=== PATIENT | female | born 1930 | race Hispanic/Latino ===

== ENCOUNTER 2016-06-15 19:30 | Emergency (ER) | payer MEDICARE, OTHER ==
[2016-06-15] MEDS ORDERED: ZEMURON IV ONE ×2 (19:50→20:00)
[2016-06-15] MEDS ORDERED: ARTIFICIAL TEARS OPHTH OINT OU PRN (19:50)
[2016-06-15] MEDS ORDERED: VASELINE LIP THERAPY TP PRN (19:50)
[2016-06-15] MEDS ORDERED: KETALAR IV ONE (19:50)
[2016-06-15] MEDS ORDERED: NACL 0.9% 500 ML IV SCH (20:00)
[2016-06-15] MEDS ORDERED: fentaNYL DRIP Premix 100 ML IV SCH (20:00)
[2016-06-15] MEDS ORDERED: KETALAR ONE (20:00)
--- NOTE | 2016-06-15 20:01 | Emergency Department Report ---
ED General Adult HPI - General Chief complaint: Weakness Stated complaint: DIFFICULTY IN BREATHING Time Seen by Provider: 06/15/16 19:47 Source: EMS (verbal report received from EMS.ems notes not available at time of chart dictation), RN notes reviewed Limitations: Altered Mental Status, Physical Limitation - History of Present Illness Initial comments: This is an 86-year-old female, previously unknown to me. Has a past medical history hypertension, cardiomyopathy, pulmonary embolus, possible congestive heart failure. She is on Coumadin therapy. She is brought to the hospital by EMS for respiratory distress. Upon arrival, the patient was on positive pressure ventilation, and obtunded, not protecting her airway. EMS did not have paperwork which clarified her specified patient's advanced directives. Therefore, she was intubated immediately by myself with 1 attempt, using direct laryngoscopy, with a 3-0 Janie curved blade, with a 7.5 endotracheal tube. Prior to intubation, the patient was placed on a nasal cannula, going 15 L/m, and received bag valve mask ventilation. Unable to obtain O2 sat greater than 86%. However, patient required emergent intubation. After intubation, I performed external decompression of her thorax and abdominal wall by applying direct pressure, a lot of air was heard leaving the endotracheal tube, and O2 sat improved to 97%. Patient coded multiple times while in the emergency department. Standard ACLS interventions were followed. An initial EKG demonstrated possible subendocardial injury. A repeat EKG suggested a STEMI. A code STEMI was called overhead. Patient coded again after calling her code STEMI. Given tenuous hemodynamic status, a stat ultrasound guided right-sided femoral central line was placed by myself with no difficulty. I discussed her case with senior programmer, Dr. Alberto, who came to the ER to evaluate the patient. Patient was not given thrombolytics because we knew she was on Coumadin, and we were uncertain if she had any intracranial injury. Addition, the cardiology team specifically did not recommend thrombolytics. Patient coded multiple times while in the ER, and her pupils are fixed and dilated while she has been here. She is unlikely to make a meaningful neurologic recovery. Furthermore, in between patient's episode of coding, I was able to clarify goals of care and advanced directives with the patient's daughter, Mrs. Coco Burch. Patient's daughter opted for comfort care, hospice care, DO NOT RESUSCITATE, DO NOT INTUBATE. She states she specifically knew her mother would not want to be maintained artificially, especially if it was likely that she would not have appropriate/meaningful neurologic function. This was also discussed with senior programmer, and both myself, the senior programmer and the daughter had an extensive discussion about possible catheterization. Cardiology not feel the patient would benefit given multiple episodes of arrest, prolonged episodes of poor perfusion. Patient's daughter agree with this, and requested comfort care/hospice care. Currently, she is sedated on a fentanyl drip, and is DNR status. I have extensively discussed her poor prognosis with her daughter and the daughter's , and the patient is most likely to tonight. Nevertheless, the hospital physician, Dr. Lugo, graciously ACCEPTED the patient to his service. -: unknown Consistency: constant Improves with: none Worsens with: none Associated Symptoms: confusion - Related Data Home Medications Medication Instructions Recorded Confirmed Last Taken Doxazosin Mesylate [Cardura] 2 mg PO DAILY 02/07/13 05/15/16 11/24/15 Ipratropium/Albuter (Nf) 2 puff IH QID 05/02/13 05/15/16 11/24/15 [Combivent Inhaler] Levothyroxine [Synthroid] 88 mcg PO QAM 11/14/13 05/15/16 11/24/15 Albuterol Sulfate [Albuterol 0.63% 0.63 mg IH TID PRN 12/13/15 05/15/16 Unknown NEBS] Loratadine 10 mg PO DAILY 12/13/15 05/15/16 Unknown Warfarin [Coumadin] 5 mg PO DAILY@1700 12/13/15 05/15/16 Unknown Fluticasone/Vilanterol [Breo 1 each IH QDAY 05/15/16 05/15/16 Unknown Ellipta 100-25 Mcg INH] Lisinopril/Hydrochlorothiazide 1 tab PO QDAY 05/15/16 05/15/16 Unknown [Zestoretic 10-12.5 mg] Previous Rx's Medication Instructions Recorded Last Taken Type Famotidine [Pepcid] 20 mg PO BID #60 tablet 12/17/13 11/24/15 Rx Gabapentin [Neurontin] 100 mg PO BID PRN #60 capsule 12/17/13 11/24/15 Rx Metoprolol [Lopressor TAB] 50 mg PO BID #60 tablet 12/17/13 11/24/15 Rx QUEtiapine [SEROquel] 25 mg PO QHS #30 tablet 12/17/13 11/24/15 Rx risperiDONE [RisperDAL] 0.25 mg PO BID #60 tablet 12/17/13 11/24/15 Rx Allergies Allergy/AdvReac Type Severity Reaction Status Date / Time codeine AdvReac Unknown Verified 02/07/13 04:54 ED Review of Systems ROS: Stated complaint: DIFFICULTY IN BREATHING Other details as noted in HPI Comment: Unobtainable due to pts medical conditions ED Past Medical Hx - Past Medical History Hx Hypertension: Yes Hx Congestive Heart Failure: Yes Hx Pulmonary Embolism: Yes Hx Arthritis: Yes Hx Asthma: Yes Hx COPD: Yes (O2 dependent, previous intubations) Hx HIV: No Additional medical history: hypothyroid, pneumonia in February. Echocardiogram 11/15/2015: Ejection fraction of 50%. Diastolic function indeterminate - Surgical History Hx Cholecystectomy: Yes Additional Surgical History: goiter, hysterectomy, several hernia repairs, vaginal mass removed - Social History Smoking Status: Former Smoker - Medications Home Medications: Home Medications Medication Instructions Recorded Confirmed Last Taken Type Doxazosin Mesylate [Cardura] 2 mg PO DAILY 02/07/13 05/15/16 11/24/15 History Ipratropium/Albuter (Nf) 2 puff IH QID 05/02/13 05/15/16 11/24/15 History [Combivent Inhaler] Levothyroxine [Synthroid] 88 mcg PO QAM 11/14/13 05/15/16 11/24/15 History Famotidine [Pepcid] 20 mg PO BID #60 tablet 12/17/13 05/15/16 11/24/15 Rx Gabapentin [Neurontin] 100 mg PO BID PRN #60 capsule 12/17/13 05/15/16 11/24/15 Rx Metoprolol [Lopressor TAB] 50 mg PO BID #60 tablet 12/17/13 05/15/16 11/24/15 Rx QUEtiapine [SEROquel] 25 mg PO QHS #30 tablet 12/17/13 05/15/16 11/24/15 Rx risperiDONE [RisperDAL] 0.25 mg PO BID #60 tablet 12/17/13 05/15/16 11/24/15 Rx Albuterol Sulfate [Albuterol 0.63% 0.63 mg IH TID PRN 12/13/15 05/15/16 Unknown History NEBS] Loratadine 10 mg PO DAILY 12/13/15 05/15/16 Unknown History Warfarin [Coumadin] 5 mg PO DAILY@1700 12/13/15 05/15/16 Unknown History Fluticasone/Vilanterol [Breo 1 each IH QDAY 05/15/16 05/15/16 Unknown History Ellipta 100-25 Mcg INH] Lisinopril/Hydrochlorothiazide 1 tab PO QDAY 05/15/16 05/15/16 Unknown History [Zestoretic 10-12.5 mg] ED Physical Exam - General Limitations: Altered Mental Status, Physical Limitation General appearance: obtunded - Head Head exam: Present: atraumatic, normocephalic - Eye Eye exam: Present: other (pupils are minimally reactive to light pupils are minimally reactive to light.) - ENT ENT exam: Present: mucous membranes dry - Neck Neck exam: Present: normal inspection. Absent: tenderness, meningismus - Respiratory Respiratory exam: Present: normal lung sounds bilaterally, respiratory distress , wheezes, rales, rhonchi, prolonged expiratory - Cardiovascular Cardiovascular Exam: Present: tachycardia, irregular rhythm, normal heart sounds. Absent: bradycardia - GI/Abdominal GI/Abdominal exam: Absent: tenderness, guarding, rebound, pulsatile mass - Rectal Rectal exam: Present: normal inspection, normal rectal tone - External exam: Present: normal external exam Speculum exam: Present: normal speculum exam - Extremities Exam Extremities exam: Present: normal inspection, pedal edema - Back Exam Back exam: Present: normal inspection - Neurological Exam Neurological exam: Present: altered - Psychiatric Psychiatric exam: Present: flat affect - Skin Skin exam: Present: warm, dry, intact, normal color. Absent: rash ED Course Vital Signs 06/15/16 06/15/16 06/15/16 19:32 19:33 19:40 Temperature 98.5 F 98.8 F Pulse Rate 122 H 98 H Respiratory 18 9 L 18 Rate Blood Pressure 140/78 Blood Pressure 112/96 [Right] O2 Sat by Pulse 100 96 Oximetry 06/15/16 06/15/16 06/15/16 19:50 20:20 20:35 Temperature Pulse Rate 111 H 155 H 123 H Respiratory 18 20 Rate Blood Pressure 143/23 Blood Pressure 93/30 [Right] O2 Sat by Pulse 96 100 100 Oximetry 06/15/16 06/15/16 06/15/16 20:41 20:51 21:01 Temperature Pulse Rate 118 H 162 H 147 H Respiratory 18 22 Rate Blood Pressure 143/123 143/123 160/106 Blood Pressure [Right] O2 Sat by Pulse 99 94 99 Oximetry 06/15/16 06/15/16 06/15/16 21:39 21:41 21:51 Temperature Pulse Rate 114 H 114 H 122 H Respiratory 16 26 H 20 Rate Blood Pressure 94/62 94/62 94/62 Blood Pressure [Right] O2 Sat by Pulse 96 97 Oximetry 06/15/16 06/15/16 06/15/16 22:01 22:11 22:21 Temperature Pulse Rate 99 H 112 H 102 H Respiratory 20 21 20 Rate Blood Pressure 94/62 94/62 44/28 Blood Pressure [Right] O2 Sat by Pulse 97 97 97 Oximetry 06/15/16 06/15/16 06/15/16 22:31 22:41 22:51 Temperature Pulse Rate 87 41 L 38 L Respiratory 21 20 20 Rate Blood Pressure 44/28 44/28 Blood Pressure [Right] O2 Sat by Pulse 96 Oximetry 06/15/16 06/15/16 06/15/16 23:01 23:11 23:21 Temperature Pulse Rate 27 L 23 L Respiratory 20 20 Rate Blood Pressure Blood Pressure [Right] O2 Sat by Pulse Oximetry 06/15/16 06/15/16 23:31 23:41 Temperature Pulse Rate Respiratory 23 20 Rate Blood Pressure Blood Pressure [Right] O2 Sat by Pulse Oximetry - Reevaluation(s) Reevaluation #1: 06/16/16 00:28 Patient at 11:32 PM. Family at the bedside and informed. Hospital physician informed. - Central Line Placement Right Femoral Consent Obtained: emergent situation Time Out Performed: No (emergent) Patient Placed on Monitor/Pulse Ox: Yes (emergently placed) Prep: mask Central Line Prep: Povidone-Iodine 1% Ultrasound Used for Placement: Yes Central Line Lumen Inserted: triple Bloods Obtained for Lab: Yes Central Line Position: good blood return, all ports aspirated, flus, sutured in place with 2-0 Dressing Applied: Tegaderm Patient Tolerated Procedure: well Complications: none - Intubation Sedative: Ketamine Mg Given: 100 Paralytic: Rocuronium Mg Given: 100 Laryngoscope: Janie Size: 3 Assist Device Used: other (passive apneic oxygenation) Tube Secured Location: teeth Tube Placement Confirmation: visualized tube passing t Patient Tolerated Procedure: well Intubation Complications: hypoxia (hypoxia prior to intubation, did not desaturate further per intubation, and s/p ett placement, oxygensaturation improved) ED Medical Decision Making - Lab Data Result diagrams: 06/15/16 20:50 06/15/16 20:50 Vital Signs 06/15/16 06/15/16 06/15/16 19:32 20:35 20:41 Temperature 98.5 F Pulse Rate 122 H 123 H 118 H Respiratory 18 20 18 Rate Blood Pressure 140/78 143/123 O2 Sat by Pulse 100 100 99 Oximetry 06/15/16 06/15/16 06/15/16 20:51 21:01 21:39 Temperature Pulse Rate 162 H 147 H 114 H Respiratory 22 16 Rate Blood Pressure 143/123 160/106 94/62 O2 Sat by Pulse 94 99 Oximetry 06/15/16 21:41 Temperature Pulse Rate 114 H Respiratory 26 H Rate Blood Pressure 94/62 O2 Sat by Pulse 96 Oximetry Labs 06/15/16 06/15/16 06/15/16 20:21 20:50 20:50 WBC 12.2 H RBC 3.97 Hgb 12.5 Hct 37.0 MCV 93 MCH 32 MCHC 34 RDW 14.9 Plt Count 179 PT 22.9 H INR 2.02 H APTT 34.6 Sodium Potassium Chloride Carbon Dioxide Anion Gap BUN Creatinine Estimated GFR BUN/Creatinine Ratio Glucose POC Glucose 226 H Lactic Acid Calcium Total Bilirubin AST ALT Alkaline Phosphatase Ammonia Troponin T NT-Pro-B Natriuret Pep Total Protein Albumin Albumin/Globulin Ratio Blood Type 06/15/16 06/15/16 06/15/16 20:50 20:50 20:50 WBC RBC Hgb Hct MCV MCH MCHC RDW Plt Count PT INR APTT Sodium 142 Potassium 3.0 L Chloride 92.2 L Carbon Dioxide 35 H Anion Gap 18 BUN 19 H Creatinine 0.9 Estimated GFR 59 BUN/Creatinine Ratio 21.11 Glucose 362 H POC Glucose Lactic Acid 5.8 H* Calcium 8.3 L Total Bilirubin 0.5 AST 64 H ALT 35 Alkaline Phosphatase 51 Ammonia 47.0 Troponin T < 0.010 NT-Pro-B Natriuret Pep Total Protein 5.2 L Albumin 2.9 L Albumin/Globulin Ratio 1.3 Blood Type 06/15/16 06/15/16 20:50 20:50 WBC RBC Hgb Hct MCV MCH MCHC RDW Plt Count PT INR APTT Sodium Potassium Chloride Carbon Dioxide Anion Gap BUN Creatinine Estimated GFR BUN/Creatinine Ratio Glucose POC Glucose Lactic Acid Calcium Total Bilirubin AST ALT Alkaline Phosphatase Ammonia Troponin T NT-Pro-B Natriuret Pep 584.2 Total Protein Albumin Albumin/Globulin Ratio Blood Type A POSITIVE - EKG Data 06/15/16 22:02 EKG #1 demonstrates bradycardia, 68 bpm, ST depression diffusely, not consistent with STEMI. EKG #[address] elevation, consistent with STEMI. seen and discussed with the senior programmer, Dr. Alberto EKG #3 demonstrates sinus tachycardia, 120 bpm, not consistent with STEMI. EKG before demonstrates right bundle branch block, left axis, prolonged QTC, st abnormality. Not STEMI. - Radiology Data Radiology results: report reviewed, image reviewed interpreted by me: X-ray of the chest demonstrates appropriate placement of endotracheal tube. Hyper inflated lungs, COPD changes are noted. Noncontrast head CT negative for acute disease. Critical Care Time: Yes Critical care time in (mins) excluding proc time.: 120 Critical care attestation.: If time is entered above; I have spent that time in minutes in the direct care of this critically ill patient, excluding procedure time. Critical Care Time: critical care time includes multiple bedside evaluations. Interpretation of laboratory studies, radiology studies, and discussion with multiple consulting services, including hospital medicine, cardiology, and family to clarify goals of care. This does not include procedure time. ED Disposition Clinical Impression: Acute respiratory failure Qualifiers: Respiratory failure complication: unspecified whether with hypoxia or hypercapnia Qualified Code(s): J96.00 - Acute respiratory failure, unspecified whether with hypoxia or hypercapnia Disposition: Is pt being admited?: No Does the pt Need Aspirin: Yes Condition: Undetermined Referrals: PRIMARY CARE, [Primary Care Provider] - 3-5 Days
[2016-06-15] MEDS ORDERED: SODIUM BICARBONATE IV ONE ×2 (20:09→20:55)
--- NOTE | 2016-06-15 20:12 | XRay Report ---
FINAL REPORT EXAM: XR CHEST 1V AP HISTORY: ETT placement TECHNIQUE: upright single view chest PRIORS: None. FINDINGS: Cardiac and mediastinal contours are unremarkable. No focal pulmonary infiltrate is identified. No pleural fluid collection seen. Pulmonary vasculature is unremarkable. There has been placement of ET tube. Tip appears in satisfactory position approximately 6 centimeters above the eun. There is an NG tube present. Distal end overlies the region of the gastric fundus. IMPRESSION: ET and NG tubes appear in satisfactory position
[2016-06-15] MEDS ORDERED: XYLOCAINE 2% INFILTRATI ONE (20:44)
[2016-06-15] MEDS ORDERED: HEPARIN/NS 5000 UNIT/500ML(CATH LAB) 0 ML IR ONE (20:44)
[2016-06-15] MEDS ORDERED: NITROGLYCERIN SYRINGE 0 ML ONE (20:45)
[2016-06-15] MEDS ORDERED: NACL 0.9% 1000 ML 0 ML ONE (20:45)
[2016-06-15] MEDS ORDERED: ADRENALIN ONE (20:55)
[2016-06-15] MEDS ORDERED: CORDARONE IV ONE (20:55)
[2016-06-15] MEDS ORDERED: D50W (25GM) IV ONE (20:55)
[2016-06-15 21:03] LABS: Hemoglobin 12.5 gm/dl (10.1-14.3); Mean Corpuscular HGB Conc 34 % (30-34); Mean Corpuscular Hemoglobin 32 pg (28-32); Mean Corpuscular Volume 93 fl (79-97); Platelet Count 179 K/mm3 (140-440); Red Blood Count 3.97 M/mm3 (3.65-5.03); Red Cell Distribution Width 14.9 % (13.2-15.2); White Blood Count 12.2 K/mm3 (4.5-11.0)
[2016-06-15 21:18] LABS: INR 2.02 (0.87-1.13)
[2016-06-15 21:19] LABS: Partial Thromboplastin Time 34.6 Sec. (24.2-36.6)
[2016-06-15] MEDS ORDERED: fentaNYL DRIP Premix 2,000 MCG/100 ML BAG IV ONE (21:22)
[2016-06-15 21:23] LABS: Alanine Aminotransferase 35 units/L (7-56); Albumin 2.9 g/dL (3.9-5); Albumin/Globulin Ratio 1.3 %; Alkaline Phosphatase 51 units/L (35-129); BUN/Creatinine Ratio 21.11; Bilirubin,Total 0.5 mg/dL (0.1-1.2); Blood Urea Nitrogen 19 mg/dL (7-17); Calcium 8.3 mg/dL (8.4-10.2); Carbon Dioxide 35 mmol/L (22-30); Chloride 92.2 mmol/L (98-107); Glucose 362 mg/dL (65-100); Sodium 142 mmol/L (137-145); Total Protein 5.2 g/dL (6.3-8.2)
[2016-06-15 21:28] LABS: Anion Gap 18 mmol/L
--- NOTE | 2016-06-15 21:43 | Cat Scan Report ---
FINAL REPORT PROCEDURE: CT HEAD/BRAIN WO CON TECHNIQUE: Computerized tomography of the head was performed without contrast material. HISTORY: Altered Mental Status COMPARISON: Head CT dated November 24, 2015 FINDINGS: Indwelling nasogastric tube is seen. Fluid and mucosal thickening are seen in the paranasal sinuses. Mastoid air cells are clear. No calvarial fracture is seen. Moderate diffuse volume loss is seen in the brain. Cerebral ventricles are normal in size. Mild chronic small vessel ischemic changes are seen in the supratentorial white matter, similar to prior study. Idiopathic calcification is seen in the left basal ganglia. No acute intracranial hemorrhage or mass effect is seen. IMPRESSION: Mild chronic small vessel ischemic changes are seen without evidence of acute intracranial abnormality. There is indwelling nasogastric tube which may account for the paranasal sinus changes but consideration should be given to sinusitis.
[2016-06-15] MEDS ORDERED: fentaNYL DRIP Premix 2,000 MCG/100 ML BAG IV SCH (21:53)
[2016-06-15 22:03] LABS: Basophils % (Manual) 0 % (0.0-1.8); Blastocytes % (Manual) 0 %; RBC Morphology Normal
[2016-06-15 22:04] LABS: Diff Status Complete; Platelet Estimate Consistent w Auto
[2016-06-15] MEDS ORDERED: ASPIRIN PR ONE (22:07)
[2016-06-15] MEDS ORDERED: KCL 10MEQ/100ML 10 MEQ/100 ML BAG IV SCH (23:00)
[2016-06-15] MEDS ORDERED: MILK OF MAGNESIA PO PRN (23:12)
[2016-06-15] MEDS ORDERED: DILAUDID IV PRN (23:12)
[2016-06-15] MEDS ORDERED: ZOFRAN IV PRN (23:12)
[2016-06-15] MEDS ORDERED: TYLENOL PO PRN (23:12)
[2016-06-15] MEDS ORDERED: DULCOLAX PR PRN (23:12)
[2016-06-15] MEDS ORDERED: PULMICORT IH SCH (23:15)
--- NOTE | 2016-06-15 23:23 | Admit Criteria Form ---
Admission Criteria Documentation: RESPIRATORY FAILURE GRG Clinical Indications for Admission to Inpatient Care (Place 'X' for any and all applicable criteria): Hospital admission is needed for appropriate care of the patient because of acute respiratory failure or insufficiency as indicated by ANY ONE of the following(1)(2)(3)(4)(5)(6)(7)(8): [ ]I. Mechanical ventilation needed (acute invasive or noninvasive) [ ]II. Severe ventilation deficit as indicated by ANY ONE of the following (9) [ ]a) Respiratory acidosis (pH less than 7.32 and partial pressure of carbon dioxide greater than 40 mm Hg (5.3 kPa)) [ ]b) Partial pressure of carbon dioxide greater than 44 mm Hg (5.9 kPa ) (new) [ ]c) Airflow measurements less than 25% of predicted (eg, peak expiratory flow rate less than 100 L/minute) [ ]d) Forced vital capacity less than 15 mL/kg of ideal body weight, or 50% decrease in vital capacity from baseline [ ]III. Noncardiac pulmonary edema not resolving with rapid emergency treatment (8) [ ]IV. Severe respiratory distress as indicated by ANY ONE of the following: [ ]a) Severe tachypnea (respiratory rate greater than 30, greater than 45 for 6-month-old, greater than 60 for ) [ ]b) Severe hypoxemia (partial pressure of oxygen less than 50 mm Hg ( 6.7 kPa) on greater than 50% oxygen or partial pressure of oxygen to FIO2 ratio less than 200) [ ]c) Mental status deterioration from respiratory disease [X ]V. Airway obstruction or inadequate protection [A](10)(11) The original [employer] content created by [employer] has been revised. The portions of the content which have been revised are identified through the use of italic text or in bold, and [employer] has neither reviewed nor approved the modified material. All other unmodified content is copyright [employer]. Please see references footnoted in the original [employer] edition 2016 Admission Criteria Met: Yes
[2016-06-15] MEDS ORDERED: NOVOLOG SUB-Q ONE (23:34)
[2016-06-15] MEDS ORDERED: D5NS 1,000 ML IV SCH (23:45)
[2016-06-15 23:47] VITALS: BP 93/30
--- NOTE | 2016-06-15 23:57 | History and Physical Report ---
History of Present Illness Date of examination: 06/15/16 Date of admission: 06/15/16 Chief complaint: 06/15/16 Critical care statement: The high probability of a clinically significant sudden or life threatening deterioration of cardiopulmonary system required my full and direct attention,intervention and personal management .The aggregate critical care time was 40 minutes.This time is in addition to time spent performing reported procedures but includes the followin Data review and interpretation 2 Patient assesment andmonitoring of vital signs 3 Documentation 4 Medication orders and managemet CC :Difficulty breathing for one day History of present illness: This is an 86-year-old female, previously unknown to me. Has a past medical history hypertension, cardiomyopathy, pulmonary embolus, possible congestive heart failure. She is on Coumadin therapy. She is brought to the hospital by EMS for respiratory distress. Upon arrival, the patient was on positive pressure ventilation, and obtunded, not protecting her airway. EMS did not have paperwork which clarified her specified patient's advanced directives. Therefore, she was intubated immediately by myself with 1 attempt, using direct laryngoscopy, with a 3-0 Janie curved blade, with a 7.5 endotracheal tube. Prior to intubation, the patient was placed on a nasal cannula, going 15 L/m, and received bag valve mask ventilation. Unable to obtain O2 sat greater than 86%. However, patient required emergent intubation. After intubation, I performed external decompression of her thorax and abdominal wall by applying direct pressure, a lot of air was heard leaving the endotracheal tube, and O2 sat improved to 97%. Patient coded multiple times while in the emergency department. Standard ACLS interventions were followed. An initial EKG demonstrated possible subendocardial injury. A repeat EKG suggested a STEMI. A code STEMI was called overhead. Patient coded again after calling her code STEMI. Given tenuous hemodynamic status, a stat ultrasound guided right-sided femoral central line was placed by myself with no difficulty. I discussed her case with customer service security officer, Dr. Alberto, who came to the ER to evaluate the patient. Patient was not given thrombolytics because we knew she was on Coumadin, and we were uncertain if she had any intracranial injury. Addition, the cardiology team specifically did not recommend thrombolytics. Patient coded multiple times while in the ER, and her pupils are fixed and dilated while she has been here. She is unlikely to make a meaningful neurologic recovery. Furthermore, in between patient's episode of coding, I was able to clarify goals of care and advanced directives with the patient's daughter, Mrs. Coco Burch. Patient's daughter opted for comfort care, hospice care, DO NOT RESUSCITATE, DO NOT INTUBATE. She states she specifically knew her mother would not want to be maintained artificially, especially if it was likely that she would not have appropriate/meaningful neurologic function. This was also discussed with customer service security officer, the customer service security officer and the daughter had an extensive discussion about possible catheterization. Cardiology did not feel the patient would benefit given multiple episodes of arrest, prolonged episodes of poor perfusion. Patient's daughter agree with this, and requested comfort care/hospice care. Currently, she is sedated on a fentanyl drip, and is DNR status. I have extensively discussed her poor prognosis with her daughter and the daughter's , and the patient is most likely to tonight. Past History Past Medical History: CAD, COPD, heart failure, hypertension, hypothyroidism, pulmonary embolism Past Surgical History: Other Social history: lives with family Family history: hypertension Medications and Allergies Allergies Allergy/AdvReac Type Severity Reaction Status Date / Time codeine AdvReac Unknown Verified 02/07/13 04:54 Home Medications Medication Instructions Recorded Confirmed Last Taken Type Doxazosin Mesylate [Cardura] 2 mg PO DAILY 02/07/13 05/15/16 11/24/15 History Ipratropium/Albuter (Nf) 2 puff IH QID 05/02/13 05/15/16 11/24/15 History [Combivent Inhaler] Levothyroxine [Synthroid] 88 mcg PO QAM 11/14/13 05/15/16 11/24/15 History Famotidine [Pepcid] 20 mg PO BID #60 tablet 12/17/13 05/15/16 11/24/15 Rx Gabapentin [Neurontin] 100 mg PO BID PRN #60 capsule 12/17/13 05/15/16 11/24/15 Rx Metoprolol [Lopressor TAB] 50 mg PO BID #60 tablet 12/17/13 05/15/16 11/24/15 Rx QUEtiapine [SEROquel] 25 mg PO QHS #30 tablet 12/17/13 05/15/16 11/24/15 Rx risperiDONE [RisperDAL] 0.25 mg PO BID #60 tablet 12/17/13 05/15/16 11/24/15 Rx Albuterol Sulfate [Albuterol 0.63% 0.63 mg IH TID PRN 12/13/15 05/15/16 Unknown History NEBS] Loratadine 10 mg PO DAILY 12/13/15 05/15/16 Unknown History Warfarin [Coumadin] 5 mg PO DAILY@1700 12/13/15 05/15/16 Unknown History Fluticasone/Vilanterol [Breo 1 each IH QDAY 05/15/16 05/15/16 Unknown History Ellipta 100-25 Mcg INH] Lisinopril/Hydrochlorothiazide 1 tab PO QDAY 05/15/16 05/15/16 Unknown History [Zestoretic 10-12.5 mg] Active Meds: Active Medications Acetaminophen (Tylenol) 650 mg PO Q4H PRN PRN Reason: Pain MILD(1-3)/Fever >100.5/CAMACHO Albuterol/Ipratropium (Duoneb 0.5 Mg-3 Mg/3 Ml Soln) 1 ampul IH Q6HRT JORDYN Bisacodyl (Dulcolax) 10 mg IN QDAY PRN PRN Reason: Constipation unrelieved by MOM Budesonide (Pulmicort) 0.5 mg IH Q12HRT JORDYN Enoxaparin Sodium (Lovenox) 40 mg SUB-Q QDAY JORDYN Hydromorphone HCl (Dilaudid) 0.5 mg IV Q3H PRN PRN Reason: Pain , Severe (7-10) Hydrophilic Ointment (Vaseline Lip Therapy) 1 applic TP Q2HR PRN PRN Reason: Dry Lips Fentanyl Citrate (Fentanyl Drip Premix) 2,000 mcg in 100 mls @ 7.5 mls/hr IV TITR JORDYN; 2 MCG/KG/HR PRN Reason: Protocol Potassium Chloride (Kcl 10meq/100ml) 10 meq in 100 mls @ 100 mls/hr IV Q1H JORDYN Stop: 06/16/16 02:59 Dextrose/Sodium Chloride (D5ns) mls @ 100 mls/hr IV DIRECT JORDYN Piperacillin Sod/Tazobactam Sod (Zosyn/Ns 4.5gm/100ml) mls @ 200 mls/hr IV Q8HR JORDYN PRN Reason: Protocol Insulin Aspart (Novolog) 0 units SUB-Q ONCE ONE PRN Reason: Protocol Stop: 06/15/16 23:35 Magnesium Hydroxide (Milk Of Magnesia) 30 ml PO Q4H PRN PRN Reason: Constipation Multi-Ingred Cream/Lotion/Oil/Oint (Artificial Tears Ophth Oint) 1 applic OU Q4HR PRN PRN Reason: Dry Eye(s) Ondansetron HCl (Zofran) 4 mg IV Q8H PRN PRN Reason: N/V unrelieved by Reglan Sodium Chloride (Nacl 0.9% 500 Ml) 1 ml IV DIRECT [facility] Review of Systems ROS unobtainable: due to endotracheal tube Constitutional: no weight loss, no weight gain Ears, nose, mouth and throat: no ear pain, no ear discharge, no tinnitis, no decreased hearing Breasts: deferred Cardiovascular: shortness of breath, no chest pain, no orthopnea, no palpitations, no rapid/irregular heart beat, no edema, no syncope, no lightheadedness Respiratory: shortness of breath, dyspnea on exertion, congestion, no cough, no cough with sputum, no excessive sputum, no hemoptysis Gastrointestinal: no nausea, no vomiting, no diarrhea, no constipation, no change in bowel habits Genitourinary Female: no pelvic pain, no flank pain, no menorrhagia, no dysuria Menstruation: no ammenorrhea Musculoskeletal: no neck stiffness, no neck pain Integumentary: no rash, no pruritis, no redness Neurological: no seizures, no syncope Psychiatric: no suicidal ideation Endocrine: no cold intolerance, no heat intolerance, no polydipsia, no polyuria , no nocturia Hematologic/Lymphatic: no easy bruising, no easy bleeding Allergic/Immunologic: no urticaria, no allergic rhinitis, no persistent infections Exam - Constitutional Vitals: Temp Pulse Resp BP Pulse Ox 98.5 F 38 L 20 44/28 96 06/15/16 19:32 06/15/16 22:51 06/15/16 22:51 06/15/16 22:41 06/15/16 22:31 General appearance: Present: severe distress, well-nourished - EENT Eyes: Present: mydriasis ENT: hearing intact, clear oral mucosa - Neck Neck: Present: supple, normal ROM - Respiratory Respiratory effort: normal Respiratory: bilateral: rales - Cardiovascular Rhythm: regular Heart Sounds: Present: S1 & S2. Absent: rub, click - Extremities Extremities: pulses symmetrical, No edema Peripheral Pulses: within normal limits - Abdominal General gastrointestinal: Present: soft, non-tender, non-distended, normal bowel sounds Female genitourinary: Present: normal - Integumentary Integumentary: Present: clear, warm, dry - Musculoskeletal Musculoskeletal: gait normal, strength equal bilaterally - Psychiatric Psychiatric: intact judgment & insight, other (Lethargic) - Neurologic Neurologic: CNII-XII intact, moves all extremities - Allied Health Allied health notes reviewed: nursing Results - Labs CBC & Chem 7: 06/15/16 20:50 06/15/16 20:50 Labs: Abnormal lab results 06/15/16 06/15/16 06/15/16 Range/Units 20:21 20:50 20:50 WBC 12.2 H (4.5-11.0) K/mm3 Lymphocytes % (Manual) 10.0 L (13.4-35.0) % Seg Neutrophils # Man 7.8 H (1.8-7.7) K/mm3 PT 22.9 H (12.2-14.9) Sec. INR 2.02 H (0.87-1.13) Potassium (3.6-5.0) mmol/L Chloride (98-107) mmol/L Carbon Dioxide (22-30) mmol/L BUN (7-17) mg/dL Glucose (65-100) mg/dL POC Glucose 226 H (70-105) Lactic Acid (0.7-2.0) mmol/L Calcium (8.4-10.2) mg/dL AST (5-40) units/L Total Protein (6.3-8.2) g/dL Albumin (3.9-5) g/dL 06/15/16 06/15/16 Range/Units 20:50 20:50 WBC (4.5-11.0) K/mm3 Lymphocytes % (Manual) (13.4-35.0) % Seg Neutrophils # Man (1.8-7.7) K/mm3 PT (12.2-14.9) Sec. INR (0.87-1.13) Potassium 3.0 L (3.6-5.0) mmol/L Chloride 92.2 L (98-107) mmol/L Carbon Dioxide 35 H (22-30) mmol/L BUN 19 H (7-17) mg/dL Glucose 362 H (65-100) mg/dL POC Glucose (70-105) Lactic Acid 5.8 H* (0.7-2.0) mmol/L Calcium 8.3 L (8.4-10.2) mg/dL AST 64 H (5-40) units/L Total Protein 5.2 L (6.3-8.2) g/dL Albumin 2.9 L (3.9-5) g/dL - Imaging and Cardiology EKG: report reviewed Chest x-ray: report reviewed Assessment and Plan - Patient Problems (1) Acute respiratory failure Status: Acute Qualifiers: Respiratory failure complication: hypoxia Qualified Code(s): J96.01 - Acute respiratory failure with hypoxia Plan to address problem: Patient intubated in ER by Dr Marsh.Inspite of vent support patient doing poorly and required multiple ACLS codes.Daughter decided for AND.Duonebs steroids and IV abx Prognosis guarded (2) Sepsis Status: Acute Qualifiers: Sepsis type: sepsis due to unspecified organism Qualified Code(s): A41.9 - Sepsis, unspecified organism Plan to address problem: IV abx and pressors if necessary (3) Acute CHF Status: Acute Qualifiers: Congestive heart failure type: combined Qualified Code(s): I50.41 - Acute combined systolic (congestive) and diastolic (congestive) heart failure Plan to address problem: IV Lasix if BP above 100 (4) Hypokalemia Status: Acute Plan to address problem: Supplemented (5) DVT prophylaxis Status: Acute Plan to address problem: on lovenox (6) Discharge planning issues Status: Acute Plan to address problem: Patient is DNR now and has a very poor prognosis. Critical care statement: The high probability of a clinically significant sudden or life threatening deterioration of cardiopulmonary system required my full and direct attention,intervention and personal management .The aggregate critical care time was 40 minutes.This time is in addition to time spent performing reported procedures but includes the followin Data review and interpretation 2 Patient assesment andmonitoring of vital signs 3 Documentation 4 Medication orders and managemet
[2016-06-16] MEDS ORDERED: ZOSYN/NS 4.5GM/100ML 4.5 GM/100 ML VIAL IV SCH
[2016-06-16] MEDS ORDERED: DUONEB 0.5 MG-3 MG/3 ML SOLN IH SCH (02:00)
[2016-06-16] MEDS ORDERED: LOVENOX SUB-Q SCH (10:00)
--- NOTE | 2016-06-16 15:06 | Consultation ---
CARDIOLOGY CONSULTATION Please refer this letter to Dr. Kirill Marsh. HISTORY OF PRESENT ILLNESS: The patient is an 86-year-old while female with history of atrial fibrillation, on anticoagulation, presented to the Emergency Room because of altered mental status and difficulty breathing. After she came to the Emergency Room, she coded few times with PEA and subsequently because of respiratory distress, the patient was intubated. Blood pressure was low. Had PEA. Subsequently, she stabilized with 100 systolic pressure. Initial EKG showed ST depression in the inferolateral leads consistent with ischemia. Rhythm appears to be atrial rhythm. Repeat EKG shows ST elevations diffusely all over the leads consistent with acute injury. Further information is obtained from the patient's daughter. She says she was confused for a while and she was confused yesterday. She could not recognize her second daughter. At this point, the patient's family request is to make her DNR. PHYSICAL EXAMINATION: GENERAL: The patient at this time is intubated, on ventilator. EYES: Conjunctivae pink, sclerae anicteric. HEART: Regular. LUNGS: Decreased breath sounds. ABDOMEN: Benign. EXTREMITIES: edema. NEUROLOGIC: Difficulty to evaluate. Rest of the evaluation not available because of the patient being intubated. FINAL IMPRESSION: 1.Episode of altered mental status with respiratory distress, requiring intubation. Chest x-ray showing no acute findings; however according to Dr. Marsh, the patient has lot of wheezing and secretions per her respiratory failure. 2.PEA probably secondary-degree acute ischemia or injury with second EKG showing ST elevations diffusely. The patient is on anticoagulation with warfarin. Her INR today is 3.1. Rest of the information not available at this time. The patient's family requested that she be made DNR. Considering her age of 86 with her altered mental status with history of dementia and along with multiple CPRs done in the ER, it was felt the patient be treated conservatively. The patient was made DNR at the request of the patient's family. The patient will be admitted to the CCU and will be given comfort care and supportive care. Discussed with Dr. Kirill Marsh and her daughter. JOB# [id number] ALEJANDRA/LOGAN
--- NOTE | 2016-06-17 07:36 | Consultation ---
ADDENDUM History is obtained from the patient's daughter. Her INR was 1.1 last week and today it is 2.0. The patient has irregular heartbeat, on Coumadin, being followed by Dr. Corea. History of hypertension, history of COPD. History congestive of heart failure. The patient was in the hospital in May for four days. Since that time, she is not feeling well. She was in assisted living care for the last 2-1/2 years. She is in wheelchair. Since that point, she is not ambulating. She was intubated 2-1/2 years ago. She pulled out all the tubes and she told that she does not want any more intubation. Also, she signed her DNR. Considering her multiple problems, it was felt that the patient be treated medically and with conservative treatment. The patient's daughter is agreeable. JOB# [id number] ALEJANDRA/LOGAN MILIAN
--- NOTE | 2016-07-14 17:05 | Death Summary ---
Summary - Providers Date of service: 06/16/16 Consults: 06/15/16 22:06 Consult to Physician [CONS] Urgent Consulting Provider: VELIA JARQUIN Reason For Exam: stemi Notified:: yes - summary Date of : 06/16/16 Reason for admission: See Discharge summary - Final diagnosis (1) Acute respiratory failure Qualifiers: Respiratory failure complication: hypoxia Qualified Code(s): J96.01 - Acute respiratory failure with hypoxia Note: Final diagnosis: (2) Sepsis Qualifiers: Sepsis type: sepsis due to unspecified organism Qualified Code(s): A41.9 - Sepsis, unspecified organism Note: Final diagnosis: (3) Acute CHF Qualifiers: Congestive heart failure type: combined Qualified Code(s): I50.41 - Acute combined systolic (congestive) and diastolic (congestive) heart failure Note: Final diagnosis: (4) Hypokalemia Note: Final diagnosis: (5) DVT prophylaxis Note: Final diagnosis: (6) Discharge planning issues Note: Final diagnosis:
--- NOTE | 2016-07-14 20:36 | Discharge Summary ---
DATE OF EXPIRATION: 06/16/2016. See history and physical. HOSPITAL COURSE: The patient was admitted for worsening shortness of breath. The patient was obtunded when she arrived at the ER and was not protecting her airway. Hence, the patient was intubated in the ER. The patient's EKG suggested STEMI, code STEMI was called. was called in. In the ER, the patient coded multiple times, hence she was not taken to cardiac catheterization lab. Family decided to go for DNR. ADMITTING DIAGNOSES: The patient's admitting diagnoses were acute respiratory failure, acute congestive heart failure, COPD exacerbation, hypotension, and STEMI. In spite of her aggressive treatment in the ER, the patient did not do well and and had a cardiorespiratory arrest on 0005 minutes on 06/16/2016. CAUSE OF : 1. Cardiorespiratory failure secondary to atherosclerotic heart disease. 2. Acute respiratory failure. 3. NSTEMI. TIME SPENT IN DISCHARGE: 20 minutes. The patient was DNR after multiple episodes of coding. JOB# [id number] VSM/NTS
== END 2016-06-16 01:10 ==
LOC: ED 19:30
DX: J96.00 Acute respiratory failure, unspecified whether with hypoxia or hypercapnia (principal); I10 Essential (primary) hypertension; I50.9 Heart failure, unspecified; J45.909 Unspecified asthma, uncomplicated; M19.90 Unspecified osteoarthritis, unspecified site; J44.9 Chronic obstructive pulmonary disease, unspecified; E03.9 Hypothyroidism, unspecified; Z86.711 Personal history of pulmonary embolism; Z90.49 Acquired absence of other specified parts of digestive tract; Z90.710 Acquired absence of both cervix and uterus; Z87.891 Personal history of nicotine dependence
CPT/HCPCS: 31500; 36415; 36556; 51702; 70450; 71010; 80053; 82140; 82962; 83880; 84484; 85007; 85025; 85610; 85730; 86850; 86900; 86901; 87040; 93005; 93010; 96374; 96375; 99291; 99292; J0171; J0282; J3010; 94002; J1644; J1815; J7030